=== PATIENT | male | born 1960 | race Caucasian/White ===

== ENCOUNTER 2017-09-28 09:23 | Inpatient (IN) ==
--- NOTE | 2017-09-27 22:34 | Discharge Summary ---
<Latisha De La Garza - Last Filed: 09/27/17 22:32> Date of Encounter: 09/27/17 - Discharge Diagnosis (1) Osteoarthritis of left hip Priority: Primary Status: Chronic Qualifiers: Osteoarthritis type: unspecified Qualified Code(s): M16.12 - Unilateral primary osteoarthritis, left hip (2) Status post total hip replacement, left Priority: Primary Status: Acute (3) Tobacco dependence Priority: Secondary Status: Chronic - Discharge Medications Home Medications: Aspirin Enteric Coated [Aspirin EC] 325 mg PO DAILY 21 Days #21 tablet.dr [Rx] OxyCODONE Immed Rel [Roxicodone 5 MG] 5 mg PO Q6HR PRN 7 Days #28 tablet [Rx] Diclofenac Sodium [Voltaren] 50 mg PO BID 09/28/17 [History] Glucosamine/D3/Boswellia Leigh [Osteo Bi-Flex Tablet] 1 tab PO DAILY 09/28/17 [ History] Allergies/Adverse Reactions: 3 Allergy/AdvReac Type Severity Reaction Status Date / Time No Known Allergies Allergy Verified 09/28/17 10:09 Primary care physician: Byron Boss CNP - Patient Status Disposition: Home, Self-Care Condition: Good - Discharge Instructions Follow Up With: Latisha De La Graza, PAC [Physician Collision Repair Technician] - 10/06/17 1:30 pm (& also, , October 13, 2017 at 1:45 PM) Byron Boss CNP [Primary Care Provider] - Christian Montano MD [Partnered Physician] - 10/26/17 3:30 pm - Hospital Course Hospital course: Mr. Burrows is a 57 year old male - Time Spent with Patient Total time spent providing and/or coordinating discharge services: <Christian Montano - Last Filed: 09/29/17 08:38> Date of Encounter: 09/29/17 Time of Encounter: 08:37 - Discharge Diagnosis (1) Osteoarthritis of left hip Priority: Primary Status: Chronic Qualifiers: Osteoarthritis type: unspecified Qualified Code(s): M16.12 - Unilateral primary osteoarthritis, left hip (2) Status post total hip replacement, left Priority: Primary Status: Acute (3) Tobacco dependence Priority: Secondary Status: Chronic (4) Acute blood loss anemia Priority: Primary Status: Acute Primary care physician: Byron Boss CNP - Patient Status Functional capacity at discharge: uses cane/walker Overall status at discharge: patient is progressing back to baseline - Hospital Course Hospital course: Mr. Burrows is a 57 year old male Status post total hip replacement The patient had an uneventful postoperative course. They received antibiotics and physical therapy and were discharged in stable condition. There will follow -up in the office in 2 weeks. - Time Spent with Patient Total time spent providing and/or coordinating discharge services:
[2017-09-28] MEDS ORDERED: Albuterol 2.5 MG/3 ML NEBULIZER IH ONE (09:44)
[2017-09-28] MEDS ORDERED: CeFAZolin Syr 2,000MG/20 ML 2,000 MG/20 ML SYRINGE IVPB ONE (09:44)
[2017-09-28] MEDS ORDERED: Plasma-Lyte A (PH 7.4) 1,000 ML IVC SCH (09:45)
--- NOTE | 2017-09-28 09:54 | History & Physical Report ---
Date of Encounter: 09/28/17 Time of Encounter: 09:53 24 Hour HP Update - Instructions Instructions: If the History and Physical is less than 30 days old and was completed prior to A.M. admission and or procedure and has NOT been updated on calendar day of procedure please complete this update prior to performing procedure. - Update Patient reports changes in Medical Condition: No Changes in examination, assessment, or condition: No Changes in Medication: No Preop tests/diagnostics Reviewed: Yes Pre-Op MRSA Screen: Negative Consent for Planned Operative Procedure(s) Verified: Yes - Pre-Operative Checklist Preoperative Checklist Indicated: No Prophylactic Antibiotic Ordered: Yes Is VTE Prophylaxis Indicated?: Yes
[2017-09-28] MEDS ORDERED: Ringers Solution, Lactated 1,000 ML IVC SCH ×2 (10:15→13:59)
[2017-09-28] MEDS ORDERED: Famotidine 20 MG/2 ML VIAL IVP ONE (10:21)
[2017-09-28] MEDS ORDERED: Pregabalin 75 MG CAPSULE PO ONE (10:22)
--- NOTE | 2017-09-28 10:24 | Anesthesia Evaluation PreOp ---
Date of Encounter: 09/28/17 Time of Encounter: 10:20 - Past History Planned Operation: Left THR Cardiac History: Denies any Significant Hx Pulmonary History: Smoker BROADBAND INSTALLER History: Denies Any Significant HX Other Medical History: Other (Osteoarhtritis) Anesthesia History: No Prior Anesthetic Complications Alcohol Use: occasionally Drug use: none Medications and Allergies Aspirin Enteric Coated [Aspirin EC] 325 mg PO DAILY 21 Days #21 tablet. [Rx] OxyCODONE Immed Rel [Roxicodone 5 MG] 5 mg PO Q6HR PRN 7 Days #28 tablet [Rx] Diclofenac Sodium [Voltaren] 50 mg PO BID 09/28/17 [History] Glucosamine/D3/Boswellia Leigh [Osteo Bi-Flex Tablet] 1 tab PO DAILY 09/28/17 [ History] 3 Allergy/AdvReac Type Severity Reaction Status Date / Time No Known Allergies Allergy Verified 09/28/17 10:09 - Meds/Allergy Pre-op Review Medications Reviewed: Yes Allergies Reviewed: Yes Beta Blockers on Current Med List: No Anesthesia Results - Labs Laboratory Tests 09/05/17 09/05/17 14:55 14:55 Hgb 14.2 Hct 43.0 Plt Count 184 Sodium 137 Potassium 3.9 BUN 16 Creatinine 0.87 - Imaging EKG: pending Anesthesia Exam O2 Sat Height 1.78 m Height 1.78 m Weight 92.986 kg Weight 92.986 kg O2 Sat by Pulse Oximetry 96 Vital Signs Temp Pulse Resp BP Pulse Ox 98.6 F 79 18 135/93 96 09/28/17 09:46 09/28/17 09:46 09/28/17 09:46 09/28/17 09:46 09/28/17 09:46 Height: 5'10 Weight: 205 lbs NPO (# of Hours): MN Pain Scale: 0 - HEENT Pupil (Motor): Pupils equal, EOMI Mallampati: III Teeth: Normal Oral Opening: Less than or equal to 3 - BROADBAND INSTALLER LOC: Oriented BROADBAND INSTALLER Motor: Normal RUE, Normal LUE, Normal RLE, Normal LLE, Normal Face BROADBAND INSTALLER Sensory: Normal: RUE, LUE, RLE, LLE, Face - Cardiac Rhythm: Regular Murmur: None JVD: No Carotid Bruit: No - Pulmonary Breath Sounds: bilateral Clear Respiratory Effort: Symmetrical Anesthesia Assess/Plan ASA Score: 2 Modified [place] Scale for Level of Consciousness: Cooperative, oriented, and tranquil Anesthetic Plan: General, Regional, MAC Monitoring Plan: Standard Monitors Recovery Plan: PACU (Discussed GA versus RA and MAC, agrees to proceed)
[2017-09-28] MEDS ORDERED: *HR* Morphine Sulfate/PF 10 MG/10 ML AMPUL ONE (10:52)
[2017-09-28] MEDS ORDERED: Ondansetron 4 MG/2 ML VIAL ONE (10:53)
[2017-09-28] MEDS ORDERED: *HR* Midazolam HCl 2 MG/2 ML VIAL ONE (10:53)
[2017-09-28] MEDS ORDERED: Lidocaine -MPF 2% 2 ML VIAL ONE (10:53)
[2017-09-28] MEDS ORDERED: *HR* OxyCODONE/APAP 5/325 TABLET PO PRN (10:58)
[2017-09-28] MEDS ORDERED: Naloxone 0.4 MG/ML INJ IVP PRN ×2 (10:58→13:59)
[2017-09-28] MEDS ORDERED: Ondansetron 4 MG/2 ML VIAL IVP PRN ×2 (10:58→13:59)
[2017-09-28] MEDS ORDERED: Bupivacaine/Clonidine Syringe 1 EACH SYRINGE ONE (11:20)
[2017-09-28] MEDS ORDERED: Bupivacaine-MPF 0.25% 10 ML VIAL ONE (11:21)
[2017-09-28] MEDS ORDERED: Ethanol\\Acetic Acid\\Na Ace\\Ben 1,000 ML IRRIG.SOLN IR ONE (11:32)
[2017-09-28] MEDS ORDERED: *HR* PHENYLEPHRINE 1,000 MCG/10 ML SYRINGE IVP ONE ×2 (12:14→12:51)
--- NOTE | 2017-09-28 12:42 | Orthopedic Operative Note ---
Date of procedure: 09/28/17 Pre-op diagnosis: Left hip arthritis Post-op diagnosis: same Procedure: Procedure: Left Total Hip Replacment robotic-assisted Estimated blood loss: 200 cc Hardware: Metal and polyethylene replacement. Gato DM Cup: 58 cup Femoral size 9 stem Head: 8 head with Eugenia Procedural Notes: Grade 4 arthritic changes femoral head acetabular socket, procedure performed with robotic assistance. Patient with no leg length discrepancy on CT scan. Operative procedure: The patient was brought to the operating room and placed on the operating room table. After general anesthesia was administered the patient was placed in the lateral decubitus position with the operative leg up. All pressure points were padded appropriately and the head was stabilized in the neutral position. The operative extremity was prepped and draped in the sterile surgical fashion patient received IV antibiotic prior to skin incision. 3 Steinmann pins were placed in the iliac crest 3 cm proximal to the anterior superior iliac spine this was for the robotic-assisted sensor. This was done through a small 2 cm incision. A standard posterior approach is made to the operative hip, the incision was made through the skin and subcutaneous tissue hemostasis was obtained with Bovie cautery. Using careful sharp dissection the fascia was identified and incised exposing the external rotators. The femoral checkpoint was placed leg length was measured at this time utilizing robotic assistance. The external rotators were released off the greater trochanter and tagged with # 2 FiberWire suture. The capsule was T'd open and the hip was brought into internal rotation. Patient noted to have grade 4 arthritic changes femoral head. The femoral neck cut was made at the appropriate level roughly 15 mm proximal to the lesser trochanter aced on preoperative templating. An anterior capsulotomy was performed for the anterior retractor. Soft tissues removed from the acetabulum. Patient noted to have grade 4 arthritic changes acetabulum. The acetabulum checkpoint was placed confirmed. The acetabulum was then mapped with robotic assistance. Based on the preoperative plan the acetabulum was reamed in one step with a 57 reamer. The 58 acetabulum was impacted with robotic assistance and 40 degrees of abduction and 11 degrees of anteversion. The hip was brought back in to internal rotation and prepared with the weigh box tender followed by the canal finder followed by the reaming process to a size 9/ 10 broaching process in 20 degrees anteversion. It was broached up to the appropriate size 9. Trial reduction revealed leg lengths close to normal. The femoral implant was impacted in place in 20 degrees of anteversion. Trial reduction found the hip to be stable with 8 head and Eugenia. The trials were removed and the real implants were impacted in place. The hip was reduced, patient had robotic confirmed leg length of 5 mm longer than the contralateral side. The hip had excellent stability with forward flexion to 90 degrees adduction of 30 degrees and internal rotation of 60 degrees. The hip had no shuck. The hips after 2 minutes with a antibacterial solution. It was irrigated out with 2 L of pulse irrigation. The checkpoints were removed, Steinmann pins were removed. The hip was closed by the PA. The deep tissue was irrigated and closed deep with #1 PDS suture superficially with 0 PDS suture and skin was closed with Dermabond and zip tie. The patient was placed in a sterile dressing and abduction pillow. The patient was extubated and transferred to the recovery room in stable condition.p Anesthesia: spinal Surgeon: Christian Montano Was there an baking assistant present: No Estimated blood loss (cc): 200 Condition: stable Disposition: PACU
[2017-09-28] MEDS ORDERED: Propofol 500 MG/50 ML INFUS..BTL ONE (13:30)
--- NOTE | 2017-09-28 13:47 | Anesthesia Evaluation Post Op ---
Date of Encounter: 09/28/17 Time of Encounter: 13:45 - Vital Signs Vital Signs: Selected Entries 09/28/17 13:15 09/28/17 13:35 Temperature 97.4 F L Pulse Rate 65 Respiratory Rate 16 Blood Pressure 109/78 O2 Sat by Pulse Oximetry 98 - Lungs Lungs: Clear Ascult./Percussion - Airway Airway: Non-obstructed - Cardiovascular Regular Rate - Mental Status Mental Status: Alert & Oriented, Answers Appropriately - Nausea Vomiting Nausea Vomiting: Not Present - Hydration Hydration: NPO - Discharge PostOp Status: Transfer Patient to floor
[2017-09-28] MEDS ORDERED: MOM Conc 10 ML UD.LIQ PO PRN (13:59)
[2017-09-28] MEDS ORDERED: Temazepam 15 MG CAPSULE PO PRN (13:59)
[2017-09-28] MEDS ORDERED: Sennosides 8.6 MG TABLET PO PRN (13:59)
[2017-09-28 14:05] LABS: Hemoglobin 11.9 g/dL (12.9-16.9)
[2017-09-28] MEDS ORDERED: *HR* Enoxaparin 30 MG/0.3 ML SYRINGE SQ SCH (18:00)
[2017-09-28] MEDS: Ascorbic Acid 500 MG TABLET PO SCH (18:03)
[2017-09-28] MEDS: *HR* Enoxaparin 30 MG/0.3 ML SYRINGE SQ SCH (18:04)
[2017-09-28] MEDS: CeFAZolin Premix DUPLEX 2,000 MG/50 ML BAG IVPB SCH (19:58)
[2017-09-29] MEDS: CeFAZolin Premix DUPLEX 2,000 MG/50 ML BAG IVPB SCH (02:56)
[2017-09-29] MEDS ORDERED: *HR* OxyCODONE Immed Rel 5 MG TABLET PO PRN ×2 (03:28→10:57)
[2017-09-29 05:21] LABS: Hematocrit 30.9 % (37.5-50.1); Hemoglobin 10.4 g/dL (12.9-16.9)
[2017-09-29] MEDS: *HR* Enoxaparin 30 MG/0.3 ML SYRINGE SQ SCH ×2 (05:25→17:00)
[2017-09-29 06:26] LABS: BUN/Creatinine Ratio 25 (6-26); Blood Urea Nitrogen 22 mg/dL (6-20); Calcium 8.3 mg/dL (8.6-10.3); Carbon Dioxide 24 mEq/L (23-29); Chloride 105 mEq/L (98-107); Glucose 125 mg/dL (70-105); Osmolality,Calculated 283 (280-300); Sodium 134 mEq/L (136-145); eGFR For African Americans > 60 (> 60); eGFR For Non-African Americans > 60 (> 60)
[2017-09-29] MEDS: Multivit/Ca/Min/Fe/FA 1 TAB TABLET PO SCH (07:48)
[2017-09-29] MEDS: Ascorbic Acid 500 MG TABLET PO SCH ×2 (07:49→16:57)
[2017-09-29] MEDS: *HR* OxyCODONE Immed Rel 5 MG TABLET PO PRN ×4 (07:49→20:56)
--- NOTE | 2017-09-29 08:37 | Orthopedics Progress Note ---
Date of Encounter: 09/29/17 Time of Encounter: 08:37 - Assessment and Plan (1) Osteoarthritis of left hip Current Visit: No Status: Chronic Qualifiers: Osteoarthritis type: unspecified Qualified Code(s): M16.12 - Unilateral primary osteoarthritis, left hip (2) Status post total hip replacement, left Current Visit: No Status: Acute (3) Tobacco dependence Current Visit: No Status: Chronic Subjective Interval history: Patient was seen this morning doing well without complaints. Afebrile vital signs stable. Operative extremity: Neurovascularly intact Dressing clean dry and intact Calves nontender Assessment and plan: Continue with postoperative care Hematocrit 30 discharged today Objective Vital signs: Vital Signs Temp Pulse Resp BP Pulse Ox 09/29/17 06:20 97 16 114/68 98 09/29/17 03:29 99.3 F 94 16 110/69 97 09/29/17 01:10 99.4 F 93 16 104/68 95 09/28/17 19:41 99.0 F 112 18 119/67 95 09/28/17 16:39 97.6 F 58 16 113/87 98 09/28/17 16:05 98.6 F 55 16 113/77 98 09/28/17 15:05 98.0 F 57 16 107/70 98 09/28/17 14:35 98.0 F 82 16 112/79 99 09/28/17 14:05 98.4 F 82 16 112/79 95 09/28/17 13:55 60 16 108/75 98 09/28/17 13:45 98.0 F 64 16 105/76 98 09/28/17 13:35 65 16 109/78 98 09/28/17 13:25 71 14 104/70 98 09/28/17 13:15 97.4 F L 69 12 104/64 97 09/28/17 11:43 78 18 114/80 98 09/28/17 11:39 76 18 122/79 98 09/28/17 11:36 75 18 119/83 98 09/28/17 11:33 78 18 132/88 98 09/28/17 11:20 73 18 135/85 98 09/28/17 09:46 98.6 F 79 18 135/93 96 Intake and Output 09/28/17 09/29/17 09/29/17 23:59 07:59 15:59 Intake Total 650 / 650 100 / 100 Output Total 0 / 0 500 / 500 Balance 650 / 650 -400 / -400 Intake: IV Fluids 50 / 50 50 / 50 Ancef Premix DUPLEX 2,000 mg In 50 / 50 50 / 50 50 ml @ 100 mls/hr IVPB Q8H [facility] Rx#:[id number] Oral 600 / 600 50 / 50 Output: Urine 0 / 0 500 / 500 Other: Meal Dinner Percent of Meal Consumed 100% - Labs CBC & BMP: 09/29/17 04:59 09/29/17 04:59 Labs: Abnormal lab results Hgb 10.4 g/dL (12.9-16.9) L D 09/29/17 04:59 Hct 30.9 % (37.5-50.1) L 09/29/17 04:59 Sodium 134 mEq/L (136-145) L 09/29/17 04:59 BUN 22 mg/dL (6-20) H 09/29/17 04:59 Glucose 125 mg/dL (70-105) H 09/29/17 04:59 Calcium 8.3 mg/dL (8.6-10.3) L 09/29/17 04:59 - VTE Documentation of Mechanical Device: Venous foot pump, device Consult Discharge Plan - Plan Referrals: Latsiha De La Garza, PAC [Physician Tanning Solution Maker] - 10/06/17 1:30 pm (& also, , October 13, 2017 at 1:45 PM) Byron Boss, OIL SPOT WASHER [Primary Care Provider] - Christian Montano MD [Partnered Physician] - 10/26/17 3:30 pm
--- NOTE | 2017-09-29 18:29 | Event Note ---
Date of Encounter: 09/29/17 Time of Encounter: 12:55 PCR- POD#1 L THR robotic Montano 07/28/18 PCR - Patient seen at bedside. Pain control: Incision pain only - incision intact with no drainage. Patient not using ice - recommended using ice. Lidoderm patch in place. Participating in PT. All questions and concerns addressed. Educated on use of incentive spirometer, ambulation, and hydration. Patient educated on post-operative restrictions and care. Addressed: see above. D/C plan: Home with OP therapy secondary to insurance not covering home health services.
--- NOTE | 2017-09-29 21:56 | Electrocardiograph Report ---
[place] [id number] Test Date: 2017-09-28 Pat Name: Garret Burrows Department: 106 Room: [facility] Gender: M Supervisor Pipelines: FRANK : 1960 Requested By: Filemon Anne Order Number: [id number] Reading MD: Adin Burns MD Measurements Intervals [place] Rate: 71 P: 34 TX: 178 QRS: -19 QRSD: 106 T: 15 QT: 385 QTc: 408 Interpretive Statements SINUS RHYTHM Electronically Signed On 09-29-2017 21:55:14 EST by Adin Burns MD
[2017-09-30] MEDS: *HR* OxyCODONE Immed Rel 5 MG TABLET PO PRN ×3 (00:50→09:24)
[2017-09-30 04:04] LABS: Hemoglobin 9.3 g/dL (12.9-16.9)
[2017-09-30 04:21] LABS: BUN/Creatinine Ratio 19 (6-26); Blood Urea Nitrogen 15 mg/dL (6-20); Calcium 8.3 mg/dL (8.6-10.3); Carbon Dioxide 26 mEq/L (23-29); Chloride 104 mEq/L (98-107); Glucose 144 mg/dL (70-105); Osmolality,Calculated 283 (280-300); Potassium 3.8 mEq/L (3.5-5.1); Sodium 135 mEq/L (136-145); eGFR For African Americans > 60 (> 60); eGFR For Non-African Americans > 60 (> 60)
[2017-09-30] MEDS: *HR* Enoxaparin 30 MG/0.3 ML SYRINGE SQ SCH (04:55)
[2017-09-30 06:31] VITALS: BP 127/74
[2017-09-30] MEDS: Multivit/Ca/Min/Fe/FA 1 TAB TABLET PO SCH (07:49)
[2017-09-30] MEDS: Ascorbic Acid 500 MG TABLET PO SCH (07:49)
--- NOTE | 2017-09-30 08:35 | Orthopedics Progress Note ---
Date of Encounter: 09/30/17 Time of Encounter: 08:35 - Assessment and Plan (1) Osteoarthritis of left hip Current Visit: No Status: Chronic Qualifiers: Osteoarthritis type: unspecified Qualified Code(s): M16.12 - Unilateral primary osteoarthritis, left hip (2) Status post total hip replacement, left Current Visit: No Status: Acute (3) Tobacco dependence Current Visit: No Status: Chronic (4) Acute blood loss anemia Current Visit: Yes Status: Acute Subjective Interval history: Patient was seen this morning doing well without complaints. Afebrile vital signs stable. Operative extremity: Neurovascularly intact Dressing clean dry and intact Calves nontender Assessment and plan: Continue with postoperative care Hb 9.3 discharged today Objective Vital signs: Vital Signs Temp Pulse Resp BP Pulse Ox 09/30/17 06:28 98.1 F 90 18 127/74 96 09/30/17 03:58 98.3 F 84 17 114/70 97 09/30/17 00:11 97.7 F 91 18 134/80 97 09/29/17 18:48 98.5 F 96 16 118/76 96 09/29/17 14:00 98.2 F 86 18 105/76 96 09/29/17 10:33 98.2 F 89 16 107/70 94 Intake and Output 09/29/17 09/30/17 09/30/17 23:59 07:59 15:59 Intake Total 50 / 50 1000 / 1000 Output Total 450 / 450 850 / 850 Balance -400 / -400 150 / 150 Intake: Oral 50 / 50 1000 / 1000 Output: Urine 450 / 450 850 / 850 - Labs CBC & BMP: 09/30/17 03:13 09/30/17 03:13 Labs: Abnormal lab results Hgb 9.3 g/dL (12.9-16.9) L 09/30/17 03:13 Hct 27.0 % (37.5-50.1) L 09/30/17 03:13 Sodium 135 mEq/L (136-145) L 09/30/17 03:13 Glucose 144 mg/dL (70-105) H 09/30/17 03:13 Calcium 8.3 mg/dL (8.6-10.3) L 09/30/17 03:13 - VTE Documentation of Mechanical Device: Venous foot pump, device Consult Discharge Plan - Plan Referrals: Latisha De La Garza, MARCY [Physician Husbandry Person] - 10/06/17 1:30 pm (& also, October at 1:45 PM) Byron Boss, NILAM [Primary Care Provider] - Christian Montano MD [Partnered Physician] - 10/26/17 3:30 pm Prescriptions: Cyclobenzaprine [Flexeril] 10 mg PO TID #20 tablet
== END 2017-09-30 12:06 | disposition home or self-care (01) | DRG 470 ==
LOC: SAMDAY 09:23 → 3NENU 13:48
PROVIDERS: ADMIT Orthopaedic Surgery; ATTEND Orthopaedic Surgery